=== PATIENT | male | born 1960 | race Caucasian/White ===

== ENCOUNTER 2018-05-25 12:52 | Outpatient (CLI) | payer MEDICARE, OTHER | END 2018-05-25 12:53 | disposition critical access hospital (66) | LOC: EMS 12:52 | PROVIDERS: ATTEND Surgery | DX: R42 Dizziness and giddiness (principal); R11.0 Nausea | CPT/HCPCS: A0425; A0427 ==

== ENCOUNTER 2018-05-25 13:11 | Observation (INO) | payer MEDICARE, OTHER ==
--- NOTE | 2018-05-25 13:33 | ED Physician Documentation ---
History of Present Illness - Stated complaint Stated Complaint: VERTIGO - Chief complaint Chief Complaint: General - History obtained from History obtained from: Patient, Family, EMS - History of Present Illness Timing: Today Pain level max: 0 Pain level now: 0 Improved by: rest Worsened by: movement. - Additonal information Additional information: states history of vertigo. States felt sudden onset of vertigo today. Vomiting. Room spinning. No fevers. No focal weakness. Has a history of liver transplant in 2013. Recently moved from [place]. worse with movement. Better lying still. Review of Systems Ten Systems: 10 systems reviewed and negative Constitutional: denies: Fever, Chills Ears: denies: Ear pain Nose: denies: Rhinorrhea / runny nose, Congestion Throat: denies: Sore throat Cardiac: denies: Chest pain / pressure Respiratory: denies: Cough GI: reports: Nausea, Vomiting. denies: Abdominal Pain, Diarrhea Skin: denies: Rash Musculoskeletal: denies: Neck pain, Back pain Neurologic: denies: Headache PD PAST MEDICAL HISTORY - Past Medical History Past Medical History: Yes GI: Other Other Past Medical History: Liver transplant 2013 - Past Surgical History General: Liver surgery - Allergies Allergies/Adverse Reactions: Allergies Allergy/AdvReac Type Severity Reaction Status Date / Time No Known Drug Allergies Allergy Verified 05/25/18 13:18 - Social History Does the pt smoke?: No Smoking Status: Never smoker Does the pt drink ETOH?: No Does the pt have substance abuse?: No - Immunizations Immunizations are current?: Yes PD ED PE NORMAL - Vitals Vital signs reviewed: Yes - General General: Alert and oriented X 3, No acute distress - HEENT HEENT: Moist mucous membranes, Other (Horizontal nystagmus present. Worsens with any movement) - Neck Neck: Supple, no meningeal sign - Cardiac Cardiac: RRR, Strong equal pulses - Respiratory Respiratory: No respiratory distress, Clear bilaterally - Abdomen Abdomen: Soft, Non tender, Non distended - Back Back: No spinal TTP - Derm Derm: Warm and dry - Extremities Extremities: No edema - Neuro Neuro: Alert and oriented X 3, team primary care physician 2-12 intact, No motor deficit, No sensory deficit, Normal speech - Psych Psych: Normal mood, Normal affect Results - Vitals Vitals: Vital Signs - 24 hr 05/25/18 05/25/18 05/25/18 13:13 14:10 15:30 Temperature 35 C L Heart Rate 71 59 L 82 Respiratory 16 16 16 Rate Blood Pressure 150/83 H 149/73 H 134/69 H O2 Saturation 99 100 100 05/25/18 05/25/18 05/25/18 16:59 18:00 18:58 Temperature Heart Rate 82 78 81 Respiratory 16 15 Rate Blood Pressure 125/71 127/77 122/80 O2 Saturation 97 97 97 05/25/18 19:17 Temperature Heart Rate 85 Respiratory 16 Rate Blood Pressure 122/84 H O2 Saturation 97 Oxygen O2 Source Room air - Labs Labs: Laboratory Tests 05/25/18 05/25/18 13:53 13:53 WBC 6.9 RBC 3.52 L Hgb 11.0 L Hct 31.5 L MCV 89.5 MCH 31.3 H MCHC 35.0 RDW 20.2 H Plt Count 134 MPV 8.3 Neut # (Auto) 5.9 Lymph # (Auto) 0.6 L [place] # (Auto) 0.3 Eos # (Auto) 0.1 Baso # (Auto) 0.0 Absolute Nucleated RBC 0.00 Nucleated RBC % 0.0 Manual Slide Review Indicated Platelet Estimate NORMAL (130-450,000) RBC Morph Micro Appear 1+ MICROCYTOSIS Sodium 137 Potassium 3.8 Chloride 103 Carbon Dioxide 26 Anion Gap 8.0 BUN 26 H Creatinine 1.4 H Estimated GFR (MDRD) 52 L Glucose 153 H Calcium 9.3 Total Bilirubin 2.7 H AST 38 ALT 42 Alkaline Phosphatase 53 Total Protein 7.2 Albumin 4.2 Globulin 3.0 Albumin/Globulin Ratio 1.4 Lipase 44 PD MEDICAL DECISION MAKING - ED course Complexity details: reviewed results, re-evaluated patient, considered differential, d/w patient, d/w family, d/w it consultant ED course: Patient is a 57-year-old male who has a long-standing history of vertigo. Symptoms today are consistent with peripheral vertigo. Nystagmus is horizontal. Was given IV Ativan, Phenergan, Benadryl. His nausea improved, but still has significant nights nystagmus. Still is very nauseated when he opens his eyes. Head CT was ordered, but the CT scanner went down unexpectedly and this cannot be performed today. MRI would likely be a better study anyway for potential cerebellar issues. As he is improving with medications, we will place him in observation with the hospitalist and have him reevaluated after receiving more medications. Concerned that he will not be able to keep his anti -rejection medications down. Discussed the case with Dr. Will who accepts This document was made in part using voice recognition software. While efforts are made to proofread this document, sound alike and grammatical errors may occur. - Sepsis Event Vital Signs: Vital Signs - 24 hr 05/25/18 05/25/18 05/25/18 13:13 14:10 15:30 Temperature 35 C L Heart Rate 71 59 L 82 Respiratory 16 16 16 Rate Blood Pressure 150/83 H 149/73 H 134/69 H O2 Saturation 99 100 100 05/25/18 05/25/18 05/25/18 16:59 18:00 18:58 Temperature Heart Rate 82 78 81 Respiratory 16 15 Rate Blood Pressure 125/71 127/77 122/80 O2 Saturation 97 97 97 05/25/18 19:17 Temperature Heart Rate 85 Respiratory 16 Rate Blood Pressure 122/84 H O2 Saturation 97 Oxygen O2 Source Room air Departure - Departure Disposition: ED Place in Observation Clinical Impression: Vertigo Vomiting Qualifiers: Vomiting type: unspecified Vomiting Intractability: intractable Nausea presence : with nausea Qualified Code(s): R11.2 - Nausea with vomiting, unspecified Condition: Stable
[2018-05-25] MEDS ORDERED: SODIUM CHLORIDE 0.9% 1,000 ML IV ONE ×2 (13:41→19:49)
[2018-05-25] MEDS ORDERED: ONDANSETRON 4 MG/2 ML VIAL IVP STA (13:41)
[2018-05-25 14:05] LABS: BASOPHILS % (AUTO) 0.4 %; EOSINOPHILS # (AUTO) 0.1 10^3/uL (0.0-0.7); LYMPHOCYTES # (AUTO) 0.6 10^3/uL (1.5-3.5); LYMPHOCYTES % (AUTO) 9.2 %; MEAN CORPUSCULAR HEMOGLOBIN 31.3 pg (27.0-31.0); MEAN CORPUSCULAR VOLUME 89.5 fL (80.0-94.0); MEAN PLATELET VOLUME 8.3 fL (7.4-11.4); MONOCYTES # (AUTO) 0.3 10^3/uL (0.0-1.0); MONOCYTES % (AUTO) 4.9 %; NEUTROPHILS # (AUTO) 5.9 10^3/uL (1.5-6.6); NEUTROPHILS % (AUTO) 84.5 %; PLT - PLATELET COUNT 134 10^3/uL (130-450); RED BLOOD COUNT 3.52 10^6/uL (4.70-6.10); RED CELL DISTRIBUTION WIDTH 20.2 % (12.0-15.0); WHITE BLOOD COUNT 6.9 x10^3/uL (4.8-10.8)
[2018-05-25 14:13] LABS: ALBUMIN 4.2 g/dL (3.2-5.5); ALBUMIN/GLOBULIN RATIO 1.4 (1.0-2.2); BILIRUBIN,TOTAL 2.7 mg/dL (0.2-1.0); CALCIUM 9.3 mg/dL (8.5-10.3); CREATININE 1.4 mg/dL (0.6-1.2); TOTAL PROTEIN 7.2 g/dL (6.7-8.2)
[2018-05-25 14:46] LABS: PLATELET ESTIMATE, MANUAL NORMAL (130-450,000) (NORMAL)
[2018-05-25] MEDS ORDERED: LORazepam 2 MG/ML VIAL IVP STA (14:54)
[2018-05-25] MEDS ORDERED: PROMETHAZINE INJ 25 MG in SODIUM CHLORIDE 0.9% 50 ML IV STA (14:54)
[2018-05-25] MEDS ORDERED: MECLIZINE 12.5 MG TABLET PO STA (17:01)
[2018-05-25] MEDS ORDERED: diphenhydrAMINE INJ 50 MG/ML VIAL IVP STA (18:37)
[2018-05-25] MEDS ORDERED: SODIUM CHLORIDE FLUSH 0.9% 10 ML SYRINGE IVP PRN (19:53)
[2018-05-25] MEDS ORDERED: ONDANSETRON 4 MG/2 ML VIAL IVP PRN (19:59)
[2018-05-25] MEDS ORDERED: PROMETHAZINE 25 MG/1 ML VIAL IM PRN (19:59)
[2018-05-25] MEDS ORDERED: PROCHLORPERAZINE 10 MG/2 ML VIAL IVP PRN (19:59)
--- NOTE | 2018-05-25 20:19 | HISTORY & PHYSICAL EXAMINATION ---
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 The patient states that he was in his normal state of health until about 1230 this afternoon when he had just finished working on his computer and walked into the bathroom. He states that he use the bathroom and then zipped up his pants when he began to notice that the room was spinning around him. He states this was very severe and he had to hold onto the toilet just to keep himself from falling over. He states he became nauseated and had emesis. His called 911 and the paramedics came to the scene. The patient states that he has had a similar episode once before earlier this year. He states that at that time he had the exact same symptoms and also had to call 911 but his symptoms resolved very quickly after he received Zofran and IV fluids. He states that he did have to stay overnight at the hospital in [place], [place] but had no further symptoms. The patient denies having had any fevers or chills. The patient denies any ringing in his ear or recent upper respiratory infection. The patient describes vertigo that is worse with certain positions. He states at this point the vertigo is so bad he cannot even open his eyes because he will become nauseated and vomit. The patient denies any headache or any focal neurologic deficits. The patient denies any abdominal pain, diarrhea or any jaundice. Patient denies any black or tarry stools. The patient denies any pale stools. The patient denies any blurred vision, runny nose, sore throat, nasal congestion , difficulty swallowing, chest pain, cough, shortness of air, orthopnea, PND, increased lower extremity swelling, urinary urgency, urinary frequency, dysuria , joint pain, joint swelling, muscle aches, back pain, neck stiffness, recent unintentional weight loss, changes in his appetite, hair loss, skin rash, night sweats, polyuria or polydipsia. The patient states that he has recently moved to [place] where his son lives and is in the [place]. He states that his previous care for liver transplant was at [facility] and since moving here he has had an appointment at the [facility] with their transplant team. The patient states that he is stable from the issue of his transplant and only requires follow-up once a year with the transplant team. Otherwise he follows up with his primary care physician for routine lab work. The patient states that ever since his liver transplant his bilirubin has been slightly elevated but has remained stable. On presentation to the emergency department the patient was afebrile and slightly hypertensive but otherwise had normal vital signs. The patient was in severe distress as he could not keep his eyes open due to vertigo and severe nausea. The patient was treated in the emergency department with IV fluids, IV Zofran, IV Phenergan, IV Benadryl, IV Ativan and oral meclizine. The patient had almost no response to all the medication he received in the emergency department. As soon as the patient opens his eyes he begins to have severe vertigo and becomes nauseated and vomits. The patient's lab work revealed a creatinine of 1.4, the patient is known to have chronic kidney disease but did have an elevated BUN of 26 and appeared to be dry on exam. The patient's bilirubin was elevated at 2.7 although we do not have a baseline bilirubin the patient does admit to having elevated bilirubin since his transplant. The patient was also hyperglycemic with a blood glucose of 153, he states he has never been told he has diabetes or borderline diabetes but does have a family history of diabetes. The patient was slightly anemic but otherwise had no leukocytosis and remainder of his electrolytes were within normal limits. Given that after 6 hours in the emergency department the patient continued to have symptoms despite multiple rounds of medication it was decided that the patient should be placed in observation for supportive care and further management of his symptoms. History - Past Medical History Endocrine/Autoimmune: reports: HyPOthyroidism GI: reports: Other (Liver transplant in 2014 for Liver failure of unknown etiology, s/p bile duct bypass ) : reports: Renal insuffiency MRSA Hx?: No Other Past Medical History: Liver transplant 2014 - Past Surgical History General: reports: Liver surgery - Family & Social History Family History: Father: , CAD, CVA/TIA, Diabetes, Type 2, [place], Brother: Diabetes, Type 2 Living arrangement: At home Living Situation: With spouse/s.o., With family Social History Notes: The patient currently lives in [place] with his and his son. Patient's son is in the [place] and had a large home therefore the patient and his decided to move up to live with her son. Prior to this the patient and his live near [place], [place] and the patient was seen at [facility] for his transplant care. The patient has established care at the [facility] for his liver transplant since moving here 2 [place]. The patient is retired [employer]. He denies any tobacco use, alcohol use or any drug use. - POLST Patient has POLST: No POLST Status: Full Code Meds/Allgy - Home Medications Home Medications: Ambulatory Orders Medication Instructions Recorded Confirmed Aspirin [Aspirin EC] 81 mg PO DAILY 05/25/18 05/25/18 Calcium Carbonate [[id number]] 500 mg PO TID 05/25/18 05/25/18 Cholecalciferol (Vitamin D3) 2,000 unit PO DAILY 05/25/18 05/25/18 [Vitamin D] Levothyroxine Sodium [Synthroid] 175 mg PO QDAC 05/25/18 05/25/18 Magnesium Oxide 400 mg PO DAILY 05/25/18 05/25/18 Multivitamin [Multivitamins] 1 tab PO DAILY 05/25/18 05/25/18 Tacrolimus [Prograf] 2 mg PO BID 05/25/18 05/25/18 azaTHIOprine [Azathioprine] 100 mg PO QPM 05/25/18 05/25/18 oxyCODONE [Roxicodone] 5 mg PO Q6H PRN 05/25/18 05/25/18 - Allergies Allergies/Adverse Reactions: Allergies Allergy/AdvReac Type Severity Reaction Status Date / Time No Known Drug Allergies Allergy Verified 05/25/18 13:18 Review of Systems - Other Findings Other Findings: A comprehensive review of systems was performed the pertinent positives and negatives are stated above in the HPI and the remainder of the review of systems is negative. Exam - Vital Signs Reviewed Vital Signs: Yes Vital Signs: Vital Signs x48h Temp Pulse Resp BP Pulse Ox 05/25/18 19:17 85 16 122/84 H 97 05/25/18 18:58 81 15 122/80 97 05/25/18 18:00 78 127/77 97 05/25/18 16:59 82 16 125/71 97 05/25/18 15:30 82 16 134/69 H 100 05/25/18 14:10 59 L 16 149/73 H 100 05/25/18 13:13 35 C L 71 16 150/83 H 99 - Physical Exam General Appearance: positive: Alert, Moderate distress (Patient keeping his eyes closed secondary to severe vertigo and nausea) Eyes Bilateral: positive: Normal inspection, PERRL, EOMI, No lid inflammation, Conjunctivae nml, No scleral icterus, Other (Horizontal nystagmus) ENT: positive: ENT inspection nml, Pharynx nml, Dry mucous membranes. negative : Purulent nasal drainage, Pharyngeal erythema, Oral lesions Neck: positive: Nml inspection, Thyroid nml, No JVD, Trachea midline. negative : Thyromegaly, Lymphadenopathy (R), Lymphadenopathy (L), Carotid bruit, Tracheal deviation Respiratory: positive: Chest non-tender, No respiratory distress, Breath sounds nml. negative: Wheezes, Rales, Rhonchi Cardiovascular: positive: Regular rate & rhythm, No murmur, No gallop Peripheral Pulses: positive: 2+ Abdomen: positive: Non-tender, No organomegaly, Nml bowel sounds, No distention. negative: Guarding, Rebound, Hepatomegaly Back: positive: Nml inspection. negative: CVA tenderness (R), CVA tenderness (L ) Skin: positive: Color nml, No rash, Warm, Dry. negative: Cyanosis, Diaphoresis , Pallor, Skin rash Extremities: positive: Non-tender, Full ROM, Nml appearance, No pedal edema Neurologic/Psychiatric: positive: Oriented x3, CN's nml (2-12), Motor nml, Sensation nml, Mood/affect nml Conclusion/Plan - Problem List (1) Intractable nausea and vomiting Conclusion/Plan: The patient presented to the emergency department secondary to vertigo, nausea and vomiting. The patient appears to have intractable nausea and vomiting as we were unable to control his nausea and vomiting while he was in emergency department despite multiple treatments with medication. The patient's intractable nausea vomiting appears likely to be secondary to his vertigo. The patient does not appear to have any gastroenteritis or abdominal etiology of his nausea and vomiting. The patient has no diarrhea and no abdominal pain. The patient does have a mildly elevated bilirubin however according to him this is elevated at baseline. This does not appear to be rejection of his transplant. Plan: We will monitor patient closely for development of any abdominal pain or any symptoms of transplant rejection. We will monitor his labs closely and keep an eye on his LFTs and bilirubin. Patient will be given supportive care with IV antiemetics and IV fluids We will treat patient's vertigo with meclizine Qualifiers: Vomiting type: unspecified Qualified Code(s): R11.2 - Nausea with vomiting , unspecified (2) Vertigo Conclusion/Plan: The patient presented to the emergency department with severe uncontrolled vertigo. The patient's vertigo was so severe that he could not open his eyes without becoming nauseated and vomiting. The patient had no recent upper respiratory infection, ringing in his ears or any fevers or chills. The patient 's vertigo is made worse with certain positions. The patient appears to have benign paroxysmal positional vertigo. The patient had horizontal nystagmus and no rotatory or vertical nystagmus therefore is very unlikely that this is a central vertigo. This appears most likely to be a peripheral vertigo. A CT scan was ordered in the emergency department but our CT scanner is currently down therefore no CT was performed. The patient does not have any focal deficits. The patient has had this type of similar vertigo in the past. Plan: P.o. meclizine IV antiemetics IV fluids Monitor closely for any development of signs to suggest central vertigo if patient does develop any signs or symptoms we will consider a CT of his head at that time. (3) History of liver transplant Conclusion/Plan: Patient able to tolerate oral meds when he keeps his eyes closed but vomits when he opens his eyes. Patient advised to take his immunosuppressive medications for his history of liver transplant while his eyes were closed and keep them closed for some time to allow for absorption. The patient states that he has had chronically elevated bilirubin since his transplant although he does not know the exact number. His bilirubin is slightly abnormal at 2.7 it is assumed that this is close to his chronically elevated number. We will monitor patient's bilirubin and LFTs while he is hospitalized. (4) Hyperglycemia Conclusion/Plan: On presentation to the emergency department the patient's blood glucose is elevated at 153. The patient does not have any history of diabetes. We do not have any previous blood glucose on the patient. We will check a hemoglobin A1c and monitor his blood glucose daily. If his A1c is elevated we will consider placing him on sliding scale insulin. The patient does not appear to be having DKA or symptoms secondary to the hyperglycemia. His blood glucose may just be elevated secondary to stress response from intractable nausea vomiting. (5) CKD (chronic kidney disease) stage 3, GFR 30-59 ml/min Conclusion/Plan: The patient has a history of tacrolimus-induced chronic kidney disease. The patient's creatinine is elevated at 1.4 on presentation and his BUN is slightly elevated at 26. We do not have a baseline creatinine on the patient therefore is not clear if this is his baseline or if he has some acute on chronic renal failure. The patient will be given IV fluids and we will monitor his creatinine while he is hospitalized. We will avoid any nephrotoxic agents. (6) Hypothyroidism Conclusion/Plan: Patient has a history of hypothyroidism and is on Synthroid at home. The patient's Synthroid dose will be continued while he is hospitalized. The patient's TSH will be checked in the morning. The patient appears stable from the standpoint of hypothyroidism. Qualifiers: Hypothyroidism type: unspecified Qualified Code(s): E03.9 - Hypothyroidism , unspecified - Lab Results Lab results reviewed: Yes Fish Bones: 05/25/18 13:53 05/25/18 13:53 Other Lab Results: Laboratory Results WBC 6.9 x10^3/uL (4.8-10.8) 05/25/18 13:53 RBC 3.52 10^6/uL (4.70-6.10) L 05/25/18 13:53 Hgb 11.0 g/dL (14.0-18.0) L 05/25/18 13:53 Hct 31.5 % (42.0-52.0) L 05/25/18 13:53 MCV 89.5 fL (80.0-94.0) 05/25/18 13:53 MCH 31.3 pg (27.0-31.0) H 05/25/18 13:53 MCHC 35.0 g/dL (32.0-36.0) 05/25/18 13:53 RDW 20.2 % (12.0-15.0) H 05/25/18 13:53 Plt Count 134 10^3/uL (130-450) 05/25/18 13:53 MPV 8.3 fL (7.4-11.4) 05/25/18 13:53 Neut # (Auto) 5.9 10^3/uL (1.5-6.6) 05/25/18 13:53 Lymph # (Auto) 0.6 10^3/uL (1.5-3.5) L 05/25/18 13:53 [facility] # (Auto) 0.3 10^3/uL (0.0-1.0) 05/25/18 13:53 Eos # (Auto) 0.1 10^3/uL (0.0-0.7) 05/25/18 13:53 Baso # (Auto) 0.0 10^3/uL (0.0-0.1) 05/25/18 13:53 Absolute Nucleated RBC 0.00 x10^3/uL 05/25/18 13:53 Nucleated RBC % 0.0 /100WBC 05/25/18 13:53 Manual Slide Review Indicated 05/25/18 13:53 Platelet Estimate NORMAL (130-450,000) (NORMAL) 05/25/18 13:53 RBC Morph Micro Appear 2+ ANISOCYTOSIS (NORMAL) 1+ MICROCYTOSIS (NORMAL) 05/25/18 13:53 RBC Morph Micro Appear 2+ ANISOCYTOSIS (NORMAL) 1+ MICROCYTOSIS (NORMAL) 05/25/18 13:53 Sodium 137 mmol/L (135-145) 05/25/18 13:53 Potassium 3.8 mmol/L (3.5-5.0) 05/25/18 13:53 Chloride 103 mmol/L (101-111) 05/25/18 13:53 Carbon Dioxide 26 mmol/L (21-32) 05/25/18 13:53 Anion Gap 8.0 (6-13) 05/25/18 13:53 BUN 26 mg/dL (6-20) H 05/25/18 13:53 Creatinine 1.4 mg/dL (0.6-1.2) H 05/25/18 13:53 Estimated GFR (MDRD) 52 (>89) L 05/25/18 13:53 Glucose 153 mg/dL (70-100) H 05/25/18 13:53 Calcium 9.3 mg/dL (8.5-10.3) 05/25/18 13:53 Total Bilirubin 2.7 mg/dL (0.2-1.0) H 05/25/18 13:53 AST 38 IU/L (10-42) 05/25/18 13:53 ALT 42 IU/L (10-60) 05/25/18 13:53 Alkaline Phosphatase 53 IU/L (42-121) 05/25/18 13:53 Total Protein 7.2 g/dL (6.7-8.2) 05/25/18 13:53 Albumin 4.2 g/dL (3.2-5.5) 05/25/18 13:53 Globulin 3.0 g/dL (2.1-4.2) 05/25/18 13:53 Albumin/Globulin Ratio 1.4 (1.0-2.2) 05/25/18 13:53 Lipase 44 U/L (22-51) 05/25/18 13:53 Core Measures - Anticipated LOS I expect patient to be DC'd or transferred within 96 hours.: Yes - DVT/VTE - Prophylaxis VTE/DVT Prophylaxis med ordered at admit?: Yes
[2018-05-25] MEDS: SODIUM CHLORIDE 0.9% 1,000 ML IV SCH (21:38)
[2018-05-25] MEDS ORDERED: CALCIUM CARB (OYSTER SHELL) 500 MG TABLET PO SCH (22:00)
[2018-05-26] MEDS ORDERED: PROMETHAZINE 25 MG/1 ML VIAL IV PRN (04:07)
[2018-05-26] MEDS: SODIUM CHLORIDE FLUSH 0.9% 10 ML SYRINGE IVP SCH ×3 (04:09→13:21)
[2018-05-26] MEDS ORDERED: SODIUM CHLORIDE 0.9% MINIBAG 100 ML IV ONE (04:39)
[2018-05-26 06:05] LABS: BASOPHILS % (AUTO) 0.4 %; EOSINOPHILS # (AUTO) 0.1 10^3/uL (0.0-0.7); EOSINOPHILS % (AUTO) 1.2 %; HGB - HEMOGLOBIN 10.9 g/dL (14.0-18.0); LYMPHOCYTES # (AUTO) 0.6 10^3/uL (1.5-3.5); MEAN CORPUSCULAR HEMOGLOBIN 31.8 pg (27.0-31.0); MEAN CORPUSCULAR HGB CONC 34.6 g/dL (32.0-36.0); MEAN CORPUSCULAR VOLUME 91.9 fL (80.0-94.0); MEAN PLATELET VOLUME 8.3 fL (7.4-11.4); MONOCYTES # (AUTO) 0.3 10^3/uL (0.0-1.0); MONOCYTES % (AUTO) 4.4 %; NEUTROPHILS # (AUTO) 5.3 10^3/uL (1.5-6.6); PLT - PLATELET COUNT 117 10^3/uL (130-450); RED BLOOD COUNT 3.42 10^6/uL (4.70-6.10); RED CELL DISTRIBUTION WIDTH 19.9 % (12.0-15.0); WHITE BLOOD COUNT 6.2 x10^3/uL (4.8-10.8)
[2018-05-26 06:17] LABS: ALBUMIN/GLOBULIN RATIO 1.6 (1.0-2.2); BILIRUBIN,TOTAL 2.3 mg/dL (0.2-1.0); CALCIUM 8.9 mg/dL (8.5-10.3); CREATININE 1.4 mg/dL (0.6-1.2); MAGNESIUM 1.8 mg/dL (1.7-2.8); PHOSPHORUS 3.6 mg/dL (2.5-4.6); TOTAL PROTEIN 6.5 g/dL (6.7-8.2)
[2018-05-26 06:38] LABS: INR 1.1 (0.8-1.2); PT - PROTHROMBIN TIME 12.6 secs (9.9-12.6)
[2018-05-26] MEDS ORDERED: LEVOTHYROXINE SODIUM 175 MG PO SCH (07:00)
[2018-05-26] MEDS ORDERED: LEVOTHYROXINE 75 MCG TABLET PO SCH (07:00)
[2018-05-26] MEDS ORDERED: LEVOTHYROXINE 100 MCG TABLET PO SCH (07:00)
[2018-05-26 07:29] LABS: HEMOGLOBIN A1C 0.2 g/dL; HEMOGLOBIN A1C % 3.8 % (4.6-6.2)
[2018-05-26] MEDS: SODIUM CHLORIDE 0.9% 1,000 ML IV SCH (07:43)
[2018-05-26] MEDS: MECLIZINE 12.5 MG TABLET PO PRN ×2 (08:27→13:20)
[2018-05-26] MEDS ORDERED: MAGNESIUM OXIDE 400 MG TABLET PO SCH (09:00)
[2018-05-26] MEDS ORDERED: TACROLIMUS 0.5 MG CAPSULE PO SCH (09:00)
[2018-05-26] MEDS ORDERED: ASPIRIN EC 81 MG TABLET PO SCH (09:00)
[2018-05-26] MEDS ORDERED: POLYETHYLENE GLYCOL 3350 17 GM PACKET PO SCH (09:00)
[2018-05-26] MEDS ORDERED: ENOXAPARIN 40 MG/0.4 ML SYRINGE SUBQ SCH (09:00)
[2018-05-26] MEDS ORDERED: CHOLECALCIFEROL 1,000 UNIT TABLET PO SCH (09:00)
[2018-05-26] MEDS ORDERED: MULTIVITAMIN TABLET PO SCH (09:00)
[2018-05-26] MEDS ORDERED: FAMOTIDINE 20 MG TABLET PO SCH (09:00)
[2018-05-26] MEDS ORDERED: CALCIUM CARB (OYSTER SHELL) 500 MG TABLET PO SCH ×2 (12:00→22:00)
--- NOTE | 2018-05-26 14:04 | MRI Report ---
Procedure Date: 05/26/2018 Accession Number: [id number] / [id number] Procedure: MRI - Brain W/O CPT Code: FULL RESULT: EXAM: MRI BRAIN WITHOUT CONTRAST EXAM DATE: 05/26/2018 01:12 PM. CLINICAL HISTORY: Severe vertigo, evaluate for stroke. COMPARISON: None available. TECHNIQUE: Multiplanar, multisequence T1-weighted and fluid-sensitive MR sequences of the brain were performed. Sequences optimized for routine evaluation. Other: None. IV Contrast: None. FINDINGS: The diffusion-weighted images are normal. There is no evidence of acute or subacute cerebral infarction. The corpus callosum is of normal size and configuration. The pituitary and sella are normal. The craniocervical junction is normal. There is minimal mucosal thickening in the ethmoid air cells. There is no obstructing pattern of sinus disease. The cerebral vascular flow voids are patent. The T2* sequence is normal. There is no evidence of subacute or chronic hemorrhage. The FLAIR images demonstrate a few punctuate T2 hyperintensities within the subcortical, deep, and periventricular white matter. This is consistent with a mild degree of chronic small vessel ischemia. The bilateral parotid spaces exhibit normal signal intensity. Impression: 1. There is no evidence of acute or subacute cerebral infarction. 2. There is mild degree of chronic small vessel ischemia. 3. There is no evidence of brain mass.
[2018-05-26] MEDS ORDERED: ONDANSETRON ODT 4 MG TABLET TL PRN (14:19)
[2018-05-26] MEDS ORDERED: MECLIZINE 12.5 MG TABLET PO PRN (14:19)
[2018-05-26 16:06] VITALS: BP 158/78
--- NOTE | 2018-05-26 16:21 | Discharge Plan ---
Discharge Plan Disposition: 01 Home, Self Care Condition: Poor Prescriptions: Meclizine [Antivert] 25 mg PO Q6HR PRN #25 tablet PRN Reason: Dizziness Prochlorperazine Maleate [Compazine] 10 mg PO Q6H PRN #15 tablet PRN Reason: Nausea / Vomiting Diet: Regular Activity Restrictions: Activity as Tolerated Shower Restrictions: No (fall precaution) Instruction Topics: Meclizine tablets or capsules, Prochlorperazine tablets, Dizziness Vertigo Balance Safety Additional Instructions or Follow Up instructions: You may follow up your PCP in one week. Should your symptoms return or worsen, you may present ER or call 911 for help. No Smoking: If you smoke, Please STOP! Call for help. Follow-up with: Provider,Other [Primary Care Provider] -
--- NOTE | 2018-05-26 16:30 | DISCHARGE SUMMARY ---
Discharge Summary Discharge Date: 05/26/18 Discharging Provider: AMES Condition at Discharge: Poor Discharge Disposition: Home, Self Care Discharge Facility Name: home - DIAGNOSES Admission Diagnoses: (1) Intractable nausea and vomiting (2) Vertigo (3) History of liver transplant (4) Hyperglycemia (5) CKD (chronic kidney disease) stage 3, GFR 30-59 ml/min (6) Hypothyroidism Discharge Diagnoses with Status of Each Condition: (1) Intractable nausea and vomiting resolved. pt is prescribed antiemesis PRN to home. pt is happy to be d/c to home (2) Vertigo resolved. pt is prescribed antiverb PRN for home. MRI of head is unremarkable (3) History of liver transplant stable, continue home regimen (4) Hyperglycemia stable (5) CKD (chronic kidney disease) stage 3, GFR 30-59 ml/min stable (6) Hypothyroidism stable - HPI History of Present Illness: refer from Dr. 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 The patient states that he was in his normal state of health until about 1230 this afternoon when he had just finished working on his computer and walked into the bathroom. He states that he use the bathroom and then zipped up his pants when he began to notice that the room was spinning around him. He states this was very severe and he had to hold onto the toilet just to keep himself from falling over. He states he became nauseated and had emesis. His called 911 and the paramedics came to the scene. The patient states that he has had a similar episode once before earlier this year. He states that at that time he had the exact same symptoms and also had to call 911 but his symptoms resolved very quickly after he received Zofran and IV fluids. He states that he did have to stay overnight at the hospital in [place], [place] but had no further symptoms. The patient denies having had any fevers or chills. The patient denies any ringing in his ear or recent upper respiratory infection. The patient describes vertigo that is worse with certain positions. He states at this point the vertigo is so bad he cannot even open his eyes because he will become nauseated and vomit. The patient denies any headache or any focal neurologic deficits. The patient denies any abdominal pain, diarrhea or any jaundice. Patient denies any black or tarry stools. The patient denies any pale stools. The patient denies any blurred vision, runny nose, sore throat, nasal congestion , difficulty swallowing, chest pain, cough, shortness of air, orthopnea, PND, increased lower extremity swelling, urinary urgency, urinary frequency, dysuria , joint pain, joint swelling, muscle aches, back pain, neck stiffness, recent unintentional weight loss, changes in his appetite, hair loss, skin rash, night sweats, polyuria or polydipsia. The patient states that he has recently moved to [place] where his son lives and is in the [place]. He states that his previous care for liver transplant was at [facility] and since moving here he has had an appointment at the [facility] with their transplant team. The patient states that he is stable from the issue of his transplant and only requires follow-up once a year with the transplant team. Otherwise he follows up with his primary care physician for routine lab work. The patient states that ever since his liver transplant his bilirubin has been slightly elevated but has remained stable. On presentation to the emergency department the patient was afebrile and slightly hypertensive but otherwise had normal vital signs. The patient was in severe distress as he could not keep his eyes open due to vertigo and severe nausea. The patient was treated in the emergency department with IV fluids, IV Zofran, IV Phenergan, IV Benadryl, IV Ativan and oral meclizine. The patient had almost no response to all the medication he received in the emergency department. As soon as the patient opens his eyes he begins to have severe vertigo and becomes nauseated and vomits. The patient's lab work revealed a creatinine of 1.4, the patient is known to have chronic kidney disease but did have an elevated BUN of 26 and appeared to be dry on exam. The patient's bilirubin was elevated at 2.7 although we do not have a baseline bilirubin the patient does admit to having elevated bilirubin since his transplant. The patient was also hyperglycemic with a blood glucose of 153, he states he has never been told he has diabetes or borderline diabetes but does have a family history of diabetes. The patient was slightly anemic but otherwise had no leukocytosis and remainder of his electrolytes were within normal limits. Given that after 6 hours in the emergency department the patient continued to have symptoms despite multiple rounds of medication it was decided that the patient should be placed in observation for supportive care and further management of his symptoms. - ALLERGIES Allergies/Adverse Reactions: Allergies Allergy/AdvReac Type Severity Reaction Status Date / Time No Known Drug Allergies Allergy Verified 05/25/18 13:18 - MEDICATIONS Home Medications: Ambulatory Orders Medication Instructions Recorded Confirmed Aspirin [Aspirin EC] 81 mg PO DAILY 05/25/18 05/25/18 Calcium Carbonate [[id number]] 500 mg PO TID 05/25/18 05/25/18 Cholecalciferol (Vitamin D3) 2,000 unit PO DAILY 05/25/18 05/25/18 [Vitamin D3] Levothyroxine Sodium [Synthroid] 175 mg PO QDAC 05/25/18 05/25/18 Magnesium Oxide 400 mg PO DAILY 05/25/18 05/25/18 Multivitamin [Multivitamins] 1 tab PO DAILY 05/25/18 05/25/18 Tacrolimus [Prograf] 2 mg PO BID 05/25/18 05/25/18 azaTHIOprine [Azathioprine] 100 mg PO QPM 05/25/18 05/25/18 oxyCODONE [Roxicodone] 5 mg PO Q6H PRN 05/25/18 05/25/18 Meclizine [Antivert] 25 mg PO Q6HR PRN #25 tablet 05/26/18 Prochlorperazine Maleate 10 mg PO Q6H PRN #15 tablet 05/26/18 [Compazine] - PHYSICAL EXAM AT DISCHARGE General Appearance: positive: No acute distress, Alert. negative: Lethargic Eyes Bilateral: positive: Normal inspection, PERRL, No lid inflammation, Conjunctivae nml ENT: positive: ENT inspection nml, Pharynx nml, No signs of dehydration. negative: Purulent nasal drainage, Pharyngeal erythema, Oral lesions Neck: positive: Nml inspection, Thyroid nml, No JVD, Trachea midline. negative : Thyromegaly, Lymphadenopathy (R), Lymphadenopathy (L), Stiff neck, Swelling/ bruising, Tracheal deviation Respiratory: positive: Chest non-tender, No respiratory distress, Breath sounds nml. negative: Wheezes, Rales, Rhonchi Cardiovascular: positive: Regular rate & rhythm, No murmur, No gallop. negative : Irregularly irregular, Extrasystoles, Tachycardia, Bradycardia, JVD present, Systolic murmur, Diastolic murmur Peripheral Pulses: positive: 2+ Abdomen: positive: Non-tender, No organomegaly, Nml bowel sounds, No distention. negative: Tenderness, Guarding, Rebound Back: positive: Nml inspection. negative: CVA tenderness (R), CVA tenderness (L ) Skin: positive: Color nml, No rash, Warm, Dry. negative: Cyanosis, Diaphoresis , Pallor Extremities: positive: Non-tender, Full ROM, Nml appearance. negative: Calf tenderness, Joint swelling, Wagner's sign/cords Neurologic/Psychiatric: positive: Oriented x3, Motor nml, Sensation nml. negative: Mood/affect nml, Weakness, Sensory loss, Facial droop, Slurred/abnml speech, Depressed mood/affect - LABS Result Diagrams: 05/26/18 05:49 05/26/18 05:49 - FOLLOW UP Follow Up: You may follow up your PCP in one week. Should your symptoms return or worsen, you may present ER or call 911 for help. - TIME SPENT Time Spent in Discharge (Minutes): 45
[2018-05-26] MEDS ORDERED: azaTHIOprine 50 MG TABLET PO SCH (21:00)
== END 2018-05-26 17:15 | disposition home or self-care (01) ==
LOC: ED 13:11 → MS2 19:53
PROVIDERS: ADMIT Internal Medicine; ATTEND Nurse Practitioner Gerontology
DX: R11.2 Nausea with vomiting, unspecified (principal); R42 Dizziness and giddiness; H55.09 Other forms of nystagmus; R73.9 Hyperglycemia, unspecified; N18.3 Chronic kidney disease, stage 3 (moderate); T45.1X5A Adverse effect of antineoplastic and immunosuppressive drugs, initial encounter; E03.9 Hypothyroidism, unspecified; Z94.4 Liver transplant status; Z79.899 Other long term (current) drug therapy; Z83.3 Family history of diabetes mellitus; Z79.82 Long term (current) use of aspirin
CPT/HCPCS: 36415; 70551; 80053; 83036; 83605; 83690; 83735; 84100; 84443; 85025; 85610; 96361; 96365; 96372; 96375; 96376; 99284; 99285; A9270; G0378; J1200; J1650; J2060; J7040